=== PATIENT | male | born 1995 | race Caucasian/White ===

== ENCOUNTER 2017-03-03 10:42 | Emergency (ER) | payer OTHER ==
[~2017-03-03] VITALS: Ht 195.6 cm; Wt 90.4 kg
[2017-03-03 10:53] VITALS: TEMP 37; Ht 195.6 cm; Wt 90.4 kg
[2017-03-03] MEDS ORDERED: MULT-506 PO (11:01)
[2017-03-03] MEDS ORDERED: GLUCTAB7 PO (11:01)
[2017-03-03] MEDS ORDERED: XYLOCAINE 1%/SOD BICARB 20 ML VIAL INFIL ONE (11:15)
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
[2017-03-03 11:44] VITALS: BP 150/94; PULSE 87; O2SAT 98
== END 2017-03-03 11:50 | disposition home or self-care (01) ==
LOC: C.EDB 10:48 → C.EDD 11:50
DX: S01.81XA Laceration without foreign body of other part of head, initial encounter (principal); V18.0XXA Pedal cycle driver injured in noncollision transport accident in nontraffic accident, initial encounter; Y93.55 Activity, bike riding

== ENCOUNTER 2017-03-09 08:36 | Emergency (ER) | payer OTHER ==
[~2017-03-09] VITALS: Ht 198.1 cm; Wt 90.4 kg
[~2017-03-09 08:36] MED LIST: GLUCTAB7 PO; MULT-506 PO
[2017-03-09 08:42] VITALS: Ht 198.1 cm; Wt 90.4 kg
[2017-03-09] MEDS ORDERED: CEPH500C2 PO (09:04)
[2017-03-09 09:19] VITALS: BP 141/84; PULSE 58; TEMP 36.3; O2SAT 98
--- NOTE | 2017-03-10 06:42 | EMERGENCY ROOM VISIT NOTE ---
ED Visit Note First contact with patient: 08:52 CHIEF COMPLAINT: Suture removal. HISTORY OF PRESENT ILLNESS: Mr. Loyola is a 22-year-old white male who ambulates into the ED requesting suture removal for a chin laceration he sustained 6 days ago. He reports he feels like the laceration has been healing well. He has noted some mild redness and swelling around the laceration but has not observed any drainage from the wound except for the first day of the wound. PHYSICAL EXAM: Vital Signs: Date Time Temp Pulse Resp B/P (MAP) Pulse Ox O2 Delivery O2 Flow Rate FiO2 03/09/17 08:42 36.3 58 20 141/84 98 Room Air General: 22-year-old white male in no acute distress, nontoxic-appearing, afebrile and hemodynamically stable. Neurological: Awake, alert and oriented 3. Answering questions appropriately and following commands. Face: Clean dry and intact wound on the anterior left chin. Surrounding the wound there is approximately 1 cm of erythema and mild edema. The wound is slightly tender to palpation. I do not appreciate any purulence draining or lymphangitis. ED COURSE: Patient is assessed as noted above. Patient's medication list was reviewed. 8 sutures were removed without any difficulty and there was no separation of the wound edges. Her was some small scab around the wound that was disrupted during suture removal and there was minimal bleeding. Patient was educated about today's findings and instructed on his treatment plan ; he verbalized understanding and agreement with this plan. DISPOSITION: Patient discharged home in stable condition. CLINICAL IMPRESSION: Wound infection. Suture removal. PLAN: A she was encouraged use ibuprofen or acetaminophen as needed for pain. Patient was placed on a 7 day course of Keflex 3 times a day. Patient was encouraged to continue to clean the wound with soap and water and cover with a small amount of antibiotic ointment and to be careful while shaving. Patient was educated on signs of worsening infection. Patient was in urged to follow-up with his PCP or return to the ED for recheck in 4-5 days. Patient was encouraged return ED sooner for increasing signs of infection or any new/concerning symptoms.
== END 2017-03-09 09:19 | disposition home or self-care (01) ==
LOC: C.EDB 08:38
DX: S01.81XD Laceration without foreign body of other part of head, subsequent encounter (principal); X58.XXXD Exposure to other specified factors, subsequent encounter; L08.9 Local infection of the skin and subcutaneous tissue, unspecified